=== PATIENT | male | born 1945 | race Caucasian/White ===

== ENCOUNTER 2016-08-16 07:34 | Observation (INO) | payer BC ==
[~2016-08-16] VITALS: Ht 177.8 cm; Wt 101.0 kg
[2016-08-16 07:39] VITALS: BP 177/79; PULSE 65; RESP 20; TEMP 97.6; O2SAT 94
--- NOTE | 2016-08-16 07:55 | PD ---
HPI Chief Complaint: left arm paresthesia Time Seen by Provider: 07:49 Travel History International Travel<30 days: No Contact w/Intl Traveler<30days: No Traveled to known affect area: No History of Present Illness HPI 71-year-old male with history of hypertension which has been poorly controlled recently, peripheral vascular disease, presents to the ER today because he states he has had several days' history of elevated blood pressures, left arm tingling and tingling in the jaw, and chest tightness. He states his blood pressure has been fairly elevated and he has been taking nitroglycerin and was recently given amlodipine after being seen in the ER and [place] several days ago. He states that his blood pressure came down but he states that the symptoms have not gone away and are still intermittent in nature. He denies any shortness of breath, nausea, difficulty walking, difficulty talking, weakness, numbness, or any other symptoms. 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 He states that he had a cardiac catheterization in 2014 which did not show significant coronary artery disease. Modifying Factors: None Associated Signs & Symptoms: Chest discomfort, left arm tingling and jaw tingling Risk Factors: None PFSH Social History Tobacco Use: No Allergies-Medications (Allergen,Severity, Reaction): Coded Allergies: No Known Allergies (Unverified , 08/16/16) Reported Meds & Prescriptions Reported Meds & Active Scripts Active Reported Aspirin 325 Mg Tab 325 Mg PO DAILY Multivitamin Men (Multiple Vitamins W/ Minerals) 1 Tab Tab 1 Tab PO DAILY Astaxanthin 4 Mg Cap 4 Mg PO DAILY Alpha Lipoic Acid (Alpha-Lipoic Acid (Thioctic AC) 200 Mg Tab Vitamin D3 (Cholecalciferol) 2,000 Unit Tab 2,000 Units PO DAILY Super B Complex Maxi (B-Complex W/ Folic Acid) 1 Tab 1 Tab PO DAILY Cinnamon Plus Chromium (Chromium-Cinnamon) 50-500 Mcg-Mg Cap Cinnamon Plus Chromium (Chromium-Cinnamon) 200-1,000 Mcg-Mg Cap Niacin (Niacinamide) 500 Mg Tab Krill Oil 500 mg (Krill Oil) 1 Cap Cap Coq-10 (Coenzyme Q10 (Ubidecarenone)) 150 Mg Cap 220 Levothyroxine (Levothyroxine Sodium) 50 Mcg Tab 50 Mcg PO DAILY Isosorbide Mononitrate ER (Isosorbide Mononitrate) 30 Mg Eddie 30 Mg PO DAILY Irbesartan 300 Mg Tab 300 Mg PO DAILY Metoprolol Succinate ER 24 HR (Metoprolol Succinate) 50 Mg Tab 50 Mg PO DAILY Amlodipine (Amlodipine Besylate) 5 Mg Tab 5 Mg PO DAILY Review of Systems Except as stated in HPI: all other systems reviewed are Neg Physical Exam Narrative GENERAL: Well-nourished, well-developed elderly white male patient in no acute distress. SKIN: Warm and dry. HEAD: Normocephalic. EYES: No scleral icterus. No injection or drainage. NECK: Supple, trachea midline. CARDIOVASCULAR: Regular rate and rhythm without murmurs, gallops, or rubs. Pulses are present and equal bilaterally. RESPIRATORY: Breath sounds equal bilaterally. No accessory muscle use. GASTROINTESTINAL: Abdomen soft, non-tender, nondistended. MUSCULOSKELETAL: No cyanosis, or edema. BACK: Nontender without obvious deformity. No CVA tenderness. NEUROLOGICAL: Awake and alert. Cranial nerves II through XII intact. Motor and sensory grossly within normal limits. Five out of 5 muscle strength in all muscle groups. Normal speech. No pronator drift. Data Data Last Documented VS Vital Signs Date Time Temp Pulse Resp B/P Pulse Ox O2 Delivery O2 Flow Rate FiO2 08/16/16 08:20 62 19 08/16/16 08:15 115/58 92 Room Air 08/16/16 07:39 97.6 Orders Electrocardiogram (08/16/16 07:49) Ckmb (Isoenzyme) Profile (08/16/16 07:49) Complete Blood Count With Diff (08/16/16 07:49) Comprehensive Metabolic Panel (08/16/16 07:49) Magnesium (Mg) (08/16/16 07:49) Prothrombin Time / Inr (Pt) (08/16/16 07:49) Act Partial Throm Time (Ptt) (08/16/16 07:49) Troponin I (08/16/16 07:49) Chest, Single Ap (08/16/16 07:49) Ecg Monitoring (08/16/16 07:49) Bilateral Bp Monitoring (08/16/16 07:49) Iv Access Insert/Monitor (08/16/16 07:49) Oximetry (08/16/16 07:49) Oxygen Administration (08/16/16 07:49) Ct Brain W/O Iv Contrast(Rout) (08/16/16 07:49) CKMB (08/16/16 08:10) CKMB% (08/16/16 08:10) Labs Laboratory Tests Test 08/16/16 08:10 White Blood Count 8.5 TH/MM3 Red Blood Count 4.92 MIL/MM3 Hemoglobin 15.5 GM/DL Hematocrit 44.5 % Mean Corpuscular Volume 90.4 FL Mean Corpuscular Hemoglobin 31.5 PG Mean Corpuscular Hemoglobin 34.8 % Concent Red Cell Distribution Width 13.4 % Platelet Count 269 TH/MM3 Mean Platelet Volume 8.0 FL Neutrophils (%) (Auto) 67.8 % Lymphocytes (%) (Auto) 22.7 % Monocytes (%) (Auto) 7.7 % Eosinophils (%) (Auto) 1.0 % Basophils (%) (Auto) 0.8 % Neutrophils # (Auto) 5.8 TH/MM3 Lymphocytes # (Auto) 1.9 TH/MM3 Monocytes # (Auto) 0.7 TH/MM3 Eosinophils # (Auto) 0.1 TH/MM3 Basophils # (Auto) 0.1 TH/MM3 CBC Comment DIFF FINAL Differential Comment Prothrombin Time 10.5 SEC Prothromb Time International 1.0 RATIO Ratio Activated Partial 25.7 SEC Thromboplast Time Sodium Level 140 MEQ/L Potassium Level 4.5 MEQ/L Chloride Level 105 MEQ/L Carbon Dioxide Level 28.6 MEQ/L Anion Gap 6 MEQ/L Blood Urea Nitrogen 20 MG/DL Creatinine 0.92 MG/DL Estimat Glomerular Filtration 81 ML/MIN Rate Random Glucose 119 MG/DL Calcium Level 9.9 MG/DL Magnesium Level 1.9 MG/DL Total Bilirubin 0.5 MG/DL Aspartate Amino Transf 25 U/L (AST/SGOT) Alanine Aminotransferase 40 U/L (ALT/SGPT) Alkaline Phosphatase 51 U/L Total Creatine Kinase 116 U/L Creatine Kinase MB 2.2 NG/ML Troponin I LESS THAN 0.02 NG/ML Total Protein 7.6 GM/DL Albumin 4.0 GM/DL MDM Medical Decision Making Medical Screen Exam Complete: Yes Emergency Medical Condition: Yes Medical Record Reviewed: Yes Interpretation(s) EKG shows NSR, no ST elevation or depression, and no arrhythmias. No significant T-wave inversions. Laboratory Tests Test 08/16/16 08:10 Blood Urea Nitrogen 20 MG/DL (7-18) Estimat Glomerular Filtration 81 ML/MIN (>89) Rate Random Glucose 119 MG/DL (74-106) Troponin I LESS THAN 0.02 NG/ML (0.02-0.05) Last [address] 08/16/16 0771 Signed Impressions: Service Date/Time: Tuesday, August 16, 2016 08:26 - CONCLUSION: Normal examination for a patient of this age. Roderick Osorio MD Chest X-Ray 08/16/1651 Signed Impressions: Service Date/Time: Tuesday, August 16, 2016 07:46 - CONCLUSION: 1. Cardiomegaly. No acute pulmonary disease. Sarath Ray MD Differential Diagnosis Chest discomfort, left arm and jaw paresthesiasACS versus cervical radiculopathy versus anxiety versus hypertensive urgency Narrative Course Patient has no focal neurological findings. EKG did not show dysrhythmias. Patient has taken his own aspirin at 3 AM this morning pulled dose. CT was negative for any signs of acute intracranial processes. Cardiac enzymes negative. At this point, my plan would be to admit him for further evaluation of his neurological symptoms. Case was discussed with family practice resident service for admission for further neurological and cardiac evaluation. Diagnosis Primary Impression: PRSNL HX OF TIA (TIA), AND CEREB INFRC W/O RESID DEFICITS Admitting Information Admitting Physician Requests: Admit Elvis Goodman MD Aug 16, 2016 07:55
[2016-08-16 08:15] VITALS: BP 115/58; PULSE 65; RESP 13; O2SAT 92
--- NOTE | 2016-08-16 08:20 | RADRPT ---
EXAM DATE/TIME: 08/16/2016 07:46 [facility] COMPARISON: No previous studies available for comparison. INDICATIONS : Chest pains. MEDICAL HISTORY : None. SURGICAL HISTORY : Stents in both legs. ENCOUNTER: Subsequent ACUITY: 3 weeks PAIN SCORE: 3/10 LOCATION: Right chest FINDINGS: The cardiac silhouette is enlarged in transverse diameter. The lungs are free of acute parenchymal op acity. No effusions are identified. There is prominence of the aortic knob is with calcification kate acteristic of atherosclerotic vascular disease. CONCLUSION: 1. Cardiomegaly. No acute pulmonary disease. Sarath Ray MD on August 16, 2016 at 8:19 Board Certified Radiologist. This report was verified electronically.
[2016-08-16 08:27] LABS: AUTOMATED NEUTROPHIL # 5.8 TH/MM3 (1.8-7.7); BASOPHIL # 0.1 TH/MM3 (0-0.2); BASOPHIL % 0.8 % (0.0-2.0); EOSINOPHIL # 0.1 TH/MM3 (0-0.4); HEMATOCRIT 44.5 % (39.0-51.0); HEMO FLAGS DIFF FINAL; LYMPH % 22.7 % (9.0-44.0); LYMPHOCYTE # 1.9 TH/MM3 (1.0-4.8); MEAN CELL VOLUME 90.4 FL (80.0-100.0); MEAN CORPUSCULAR HEMOGLOBIN 31.5 PG (27.0-34.0); MEAN CORPUSCULAR HGB CONC 34.8 % (32.0-36.0); MONO % 7.7 % (0.0-8.0); NEUT % 67.8 % (16.0-70.0); PLATELET COUNT 269 TH/MM3 (150-450); RED BLOOD COUNT 4.92 MIL/MM3 (4.50-5.90); RED CELL DISTRIBUTION WIDTH 13.4 % (11.6-17.2); WHITE BLOOD COUNT 8.5 TH/MM3 (4.0-11.0)
[2016-08-16 08:36] LABS: APTT (PATIENT) 25.7 SEC (24.3-30.1); PROTHROMBIN TIME - PATIENT 10.5 SEC (9.8-11.6)
[2016-08-16] MEDS ORDERED: SUPETAB20 PO (08:40)
[2016-08-16] MEDS ORDERED: ISOS30TA3 PO (08:40)
[2016-08-16] MEDS ORDERED: VITA200012 PO (08:40)
[2016-08-16] MEDS ORDERED: ALPHTAB (08:40)
[2016-08-16] MEDS ORDERED: NIAC500T18 (08:40)
[2016-08-16] MEDS ORDERED: CHRO1CAP2 (08:40)
[2016-08-16] MEDS ORDERED: MULT1TAB85 PO (08:40)
[2016-08-16] MEDS ORDERED: CHRO1CAP4 (08:40)
[2016-08-16] MEDS ORDERED: METO50TA11 PO (08:40)
[2016-08-16] MEDS ORDERED: LEVO50TA4 PO (08:40)
[2016-08-16] MEDS ORDERED: KRIL1CAP11 (08:40)
[2016-08-16] MEDS ORDERED: IRBE300T11 PO (08:40)
[2016-08-16] MEDS ORDERED: ASPI325T PO (08:40)
[2016-08-16] MEDS ORDERED: ASTA1CAP2 PO (08:40)
[2016-08-16] MEDS ORDERED: AMLO5TAB2 PO (08:40)
[2016-08-16] MEDS ORDERED: COQ-150C (08:40)
[2016-08-16 08:46] LABS: ALT (GPT) 40 U/L (12-78); ANION GAP 6 MEQ/L (5-15); AST (GOT) 25 U/L (15-37); BICARBONATE 28.6 MEQ/L (21.0-32.0); BLOOD UREA NITROGEN 20 MG/DL (7-18); CHLORIDE 105 MEQ/L (98-107); GLOMERULAR FILTRATION RATE 81 ML/MIN (>89); MAGNESIUM 1.9 MG/DL (1.5-2.5); POTASSIUM 4.5 MEQ/L (3.5-5.1); SODIUM (NA) 140 MEQ/L (136-145)
[2016-08-16 08:51] LABS: ALKALINE PHOSPHATASE 51 U/L (45-117); CREATINE KINASE 116 U/L (39-308); TOTAL BILIRUBIN ADULT 0.5 MG/DL (0.2-1.0)
[2016-08-16 09:04] LABS: CKMB 2.2 NG/ML (0.5-3.6)
--- NOTE | 2016-08-16 09:16 | RADRPT ---
EXAM DATE/TIME: 08/16/2016 08:26 [facility] COMPARISON: No previous studies available for comparison. INDICATIONS : Increased blood pressure with left arm tingling and chest tightness. RADIATION DOSE: 51.30 CTDIvol (mGy) MEDICAL HISTORY : Hypertension. Cardiovascular disease SURGICAL HISTORY : None. ENCOUNTER: Initial ACUITY: 1 day PAIN SCALE: 0/10 LOCATION: cranial TECHNIQUE: Multiple contiguous axial images were obtained of the head. Using automated exposure control and adj ustment of the mA and/or kV according to patient size, radiation dose was kept as low as reasonably a chievable to obtain optimal diagnostic quality images. FINDINGS: CEREBRUM: The ventricles are normal for age. Mild bilateral cortical atrophy. No evidence of midline shift, ma ss lesion, hemorrhage or acute infarction. No extra-axial fluid collections are seen. POSTERIOR FOSSA: The cerebellum and brainstem are intact. The 4th ventricle is midline. The cerebellopontine angle i s unremarkable. EXTRACRANIAL: The visualized portion of the orbits is intact. SKULL: The calvaria is intact. No evidence of skull fracture. CONCLUSION: Normal examination for a patient of this age. Roderick Osorio MD on August 16, 2016 at 9:14 Board Certified Radiologist. This report was verified electronically.
--- NOTE | 2016-08-16 09:41 | HHI.HP ---
[facility] Service Family Medicine Primary Care Physician Non-Staff Admission Diagnosis Diagnoses: International Travel<30 Days: No Contact w/Intl Traveler<30days: No Known Affected Area: No History of Present Illness 71y male with HTN, Hx [place], DM2 with diabetic neuropathy, PVD, and tobacco abuse presents 08/16/15 for tingling/numbness. Starting three weeks ago, had numbness and tingling in L face/lips/jaw, arm, and leg. Neuropathy lasts for minutes to an hour, or longer. Worsened by staying still, improved by movement. No inciting incident- denies association with food, exercise, or stress. Also noticed the blood pressure elevated. Has episodes where he feels burning in feet and ears with cold sweats and then checks b/p. B/P decreases after takes quick acting nitro. Of note, noticed improvement in numbness once his blood pressure is controlled. Episodes tend occur in evenings. Compliant with aspirin, irbesartan, isosorbide mononitrate, and metoprolol. Stresses no worse than baseline. Denies PEREA, blurry vision, ataxia, falls, chest pain, palpitations, SOB, or weakness. Worked up for HTN/numbness by ED in [facility] with ACS workup negative. 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 Review of Systems Constitutional: COMPLAINS OF: Diaphoretic episodes, DENIES: Fever, Chills, Dizziness Eyes: DENIES: Blurred vision, Double Vision Ears, nose, mouth, throat: DENIES: Throat pain, Running Nose Respiratory: COMPLAINS OF: Snoring, DENIES: Cough, Wheezing, Hemoptysis, Sputum production, Shortness of breath Cardiovascular: DENIES: Chest pain, Palpitations, Syncope, Lower Extremity Edema, Claudication Gastrointestinal: DENIES: Abdominal pain, Nausea, Vomiting Musculoskeletal: COMPLAINS OF: Back pain, DENIES: Neck pain Integumentary: COMPLAINS OF: Abnormal pigmentation (shins, some hyperpigmentation), DENIES: Pruritus, Rash Neurologic: COMPLAINS OF: Paresthesias, Poor Balance (baseline), DENIES: Headache, Localized weakness, Seizures, Speech Problems, Tremor Psychiatric: DENIES: Anxiety, Confusion, Mood changes Past Family Social History Past Medical History DM2 HTN HLD Diabetic neuropathy Hx [place] (2001) Tobacco abuse Lumbar back pain PVD Hypothyroidism Past Surgical History LE bypass x2 Cardiac cath 2015- wnl Appendectomy 2006 Reported Medications Astaxanthin 4 Mg Cap 4 Mg PO DAILY (anti-oxidant) Multivitamin Men (Multiple Vitamins W/ Minerals) 1 Tab Tab 1 Tab PO DAILY Alpha Lipoic Acid (Alpha-Lipoic Acid (Thioctic AC) 200 Mg Tab (tx diabetic neuropathy) Vitamin D3 (Cholecalciferol) 2,000 Unit Tab 2,000 Units PO DAILY Super B Complex Maxi (B-Complex W/ Folic Acid) 1 Tab 1 Tab PO DAILY Cinnamon Plus Chromium (Chromium-Cinnamon) 200-1,000 Mcg-Mg Cap Niacin (Niacinamide) 500 Mg Tab Krill Oil 500 mg (Krill Oil) 1 Cap Cap Coq-10 (Coenzyme Q10 (Ubidecarenone)) 150 Mg Cap 220 Levothyroxine (Levothyroxine Sodium) 50 Mcg Tab 50 Mcg PO DAILY Aspirin 325 Mg Tab 325 Mg PO DAILY Isosorbide Mononitrate ER (Isosorbide Mononitrate) 30 Mg Eddie 30 Mg PO DAILY ( prophylactic) Irbesartan 300 Mg Tab 300 Mg PO DAILY Metoprolol Succinate ER 24 HR (Metoprolol Succinate) 50 Mg Tab 50 Mg PO DAILY Amlodipine (Amlodipine Besylate) 5 Mg Tab 5 Mg PO DAILY Allergies: Coded Allergies: No Known Allergies (Unverified , 08/16/16) Family History Three children, healthy. 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 Children- 3. Not in the area. Ciro is eldest child. Physical Exam Vital Signs Vital Signs Date Time Temp Pulse Resp B/P Pulse Ox O2 Delivery O2 Flow Rate FiO2 08/16/16 08:20 62 19 08/16/16 08:15 65 13 115/58 92 Room Air 08/16/16 07:39 97.6 65 20 177/79 94 Room Air Physical Exam CONST: Adult male, NAD DERM: Warm and dry HEENT: PERRL. EOMI. No nystagmus. MMM. Wears glasses CV: Bradycardic (50-60). Faint heart sounds. No murmurs. Radial pulse 2+ RESP: Lungs CTAB. Breathing well on RA GI: NTND. +BS MSK: Muscle tone appropriate, symmetrical. No tenderness to palpation of vertebral or paravertebral structures. NEURO: Minor loss of sensation in L V2 distribution of face. ROM neck full and without inciting neuropathy. Negative Lhermitte. Otherwise comprehensive neuro exam wnl. AAOx3. No facial droop. Tongue midline. CNII-XII intact. 5/5 strength deltoids, biceps/triceps, hip flexors, dorsiflexion/ plantarflexion at ankle. Sensation equal and symmetrical in upper and lower extremities. No Babinski sign. PSYCH: Gruff demenor. Good insight. Excellent historian. Laboratory Laboratory Tests Test 08/16/16 08:10 White Blood Count 8.5 Red Blood Count 4.92 Hemoglobin 15.5 Hematocrit 44.5 Mean Corpuscular Volume 90.4 Mean Corpuscular Hemoglobin 31.5 Mean Corpuscular Hemoglobin 34.8 Concent Red Cell Distribution Width 13.4 Platelet Count 269 Mean Platelet Volume 8.0 Neutrophils (%) (Auto) 67.8 Lymphocytes (%) (Auto) 22.7 Monocytes (%) (Auto) 7.7 Eosinophils (%) (Auto) 1.0 Basophils (%) (Auto) 0.8 Neutrophils # (Auto) 5.8 Lymphocytes # (Auto) 1.9 Monocytes # (Auto) 0.7 Eosinophils # (Auto) 0.1 Basophils # (Auto) 0.1 CBC Comment DIFF FINAL Differential Comment Prothrombin Time 10.5 Prothromb Time International 1.0 Ratio Activated Partial 25.7 Thromboplast Time Sodium Level 140 Potassium Level 4.5 Chloride Level 105 Carbon Dioxide Level 28.6 Anion Gap 6 Blood Urea Nitrogen 20 Creatinine 0.92 Estimat Glomerular Filtration 81 Rate Random Glucose 119 Calcium Level 9.9 Magnesium Level 1.9 Total Bilirubin 0.5 Aspartate Amino Transf 25 (AST/SGOT) Alanine Aminotransferase 40 (ALT/SGPT) Alkaline Phosphatase 51 Total Creatine Kinase 116 Creatine Kinase MB 2.2 Troponin I LESS THAN 0.02 Total Protein 7.6 Albumin 4.0 Result Diagram: 08/16/1610 08/16/16 0810 Imaging Last Impressions Head CT 08/16/16 0749 Signed Impressions: Service Date/Time: Tuesday, August 16, 2016 08:26 - CONCLUSION: Normal examination for a patient of this age. Roderick Osorio MD Chest X-Ray 08/16/16 0749 Signed Impressions: Service Date/Time: Tuesday, August 16, 2016 07:46 - CONCLUSION: 1. Cardiomegaly. No acute pulmonary disease. Sarath Ray MD Assessment and Plan Assessment and Plan 71y male admitted with poorly controlled HTN and L-sided neuropathy for ACS rule out. Code Status Full Discussed Condition With DW: Dr. Silva, Dr. Garnica Problem List: (1) Poorly-controlled hypertension Status: Acute Plan: Reports compliance with meds. Possibly many homeopathic remedies interfering with medications? ACS rule out. Plan -Admit to observation under Dr. Silva -Trend Trops, CK, EKG Trop 1: Less than 0.02. Pending #2 and #3 at 2pm and 8pm CK 1: wnl. Pending #2 and #3 EKG: Sinus bradycardia (57). Left [place] Deviation. QRS prolonged (0.14) No ST elevations or depressions appreciated. No T wave changes. Compare to EKG 07/27/16- pt brought, in room -CBC, CMP, free t4 ordered CBC, CMP wnl -free T4 pending -US Carotid Arteries pending -ECHO pending (2) Numbness and tingling Status: Acute Plan: Appears related to hypertensive episodes, likely arterial in nature. Odd that only L-sided, however neuro exam unremarkable. Head CT, CXR, wnl -continue to monitor, consider additional imaging or labs as indicated (3) CAD (coronary artery disease) Status: Chronic Plan: Hx probable [place] in 2001. Denies stents. Cardiac cath in 2014 wnl. Did not tolerate plavix secondary to nosebleeds. -Continue home aspirin 325mg (4) Hypothyroidism Status: Chronic Plan: -continue home levothyroxine 50mcg daily -free T4 pending (5) PVD (peripheral vascular disease) Status: Chronic Plan: s/p LE bypass each leg -smoking cessation counseling provided (6) HTN (hypertension) Status: Chronic Plan: -continue home metoprolol 50mg daily -continue home amlodipine 5mg daily -continue home irbesartan -clonidine PRN SBP 180+ (7) HLD (hyperlipidemia) Status: Chronic Plan: Previously took Aleve and Repatha (evolocumab) INJ every other week for cholesterol, both of which were stopped in the last month as may increase B/P. -continue home niacin (8) DM2 (diabetes mellitus, type 2) Status: Chronic Plan: DM2 with neuropathy. Well controlled, A1C 5.1%. Diabetic neuropathy (no feeling in L great toe). Takes metformin 1000mg BID and natural remedies- alpha lipoic acid, astaxanthin, cinnamon/chromium, Coq-10, multivit, superB w folic acid. - hold home metformin and herbal remedies. Last A1C 5.1%. - LSSI and Accue-checks (9) Diabetic neuropathy Status: Chronic Plan: -hold home herbal remedies (10) Tobacco dependence Status: Chronic Plan: 1 PPD *38y -smoking cessation counseling provided -nicotine patch contraindicated until ACS rule out neg (11) FEN and Chronic Conditions Status: Chronic Plan: Fluids: Per PO Electrolytes: monitor and replete, wnl on admit Nutrition: Heart Healthy Diet DVT ppx: SCD + Lovenox 40mg SQ daily GI ppx: not indicated Physician Certification 2 Midnight Certification Type: Admission for Inpatient Services Order for Inpatient Services The services are ordered in accordance with Medicare regulations or non- Medicare payer requirements, as applicable. In the case of services not specified as inpatient-only, they are appropriately provided as inpatient services in accordance with the 2-midnight benchmark. Estimated LOS (days): 2 days is the estimated time the patient will need to remain in the hospital, assuming treatment plan goals are met and no additional complications. Post-Hospital Plan: Home Problem Qualifiers (1) Diabetic neuropathy: Qualified Code: E11.42 - Diabetic polyneuropathy associated with type 2 diabetes mellitus Any Abraham MD R1 Aug 16, 2016 09:41 Estimated LOS (days): 2 days is the estimated time the patient will need to remain in the hospital, assuming treatment plan goals are met and no additional complications. Post-Hospital Plan: Home Problem Qualifiers (1) Diabetic neuropathy: Qualified Code: E11.42 - Diabetic polyneuropathy associated with type 2 diabetes mellitus Any Abraham MD R1 Aug 16, 2016 09:41
[2016-08-16] MEDS ORDERED: METF1000 PO (10:19)
[2016-08-16] MEDS ORDERED: amLODIPine BESYLATE 5 MG TAB PO SCH (11:00)
[2016-08-16] MEDS ORDERED: NALOXONE HCL 0.4 MG/ML AMP IV PRN (11:00)
[2016-08-16] MEDS ORDERED: SODIUM CHLORIDE 0.9% FLUSH 5 ML FLUSH FLUSH PRN (11:00)
--- NOTE | 2016-08-16 12:07 | RADRPT ---
EXAM DATE/TIME: 08/16/2016 11:23 [facility] COMPARISON: No previous studies available for comparison. INDICATIONS : Paresthesia. MEDICAL HISTORY : Hypercholesterolemia. Diabetes. SURGICAL HISTORY : Cardiac catheterization. Stents in legs. ENCOUNTER: Initial ACUITY: 2 weeks PAIN SCORE: 0/10 LOCATION: Bilateral neck PEAK SYSTOLIC VELOCITIES (cm/sec): ICA/CCA RATIO: Right: 1.0 Left: 1.0 ICA: Right: 72 Left: 65 CCA: Right: 70 Left: 66 ECA: Right: 78 Left: 78 VERTEBRAL: Right: 43 antegrade Left: 32 antegrade Elevated flow velocities and ICA/CCA ratios have been found to correlate with increased degrees of vessel stenosis, calculated as percentage of diameter relative to a normal segment of distal ICA/CCA FINDINGS: Scattered areas of atherosclerotic calcified plaque bilaterally within the carotid mindy nandini, right greater than left. RIGHT CAROTID: No significant stenosis is visualized. The waveforms are within normal limits. LEFT CAROTID: No significant stenosis is visualized. The waveforms are within normal limits. VERTEBRAL ARTERIES: Antegrade flow is seen in both vertebral arteries. MISCELLANEOUS: None. CONCLUSION: No evidence of significant stenosis. Kasey Mckenzie MD on August 16, 2016 at 12:04 Board Certified Radiologist. This report was verified electronically.
[2016-08-16] MEDS ORDERED: NITROGLYCERIN 2% OINT 1 GM PACKET TOP PRN (12:30)
[2016-08-16] MEDS ORDERED: ACETAMINOPHEN 325 MG TAB PO PRN (12:30)
[2016-08-16] MEDS ORDERED: SODIUM CHLORIDE 0.9% FLUSH 5 ML FLUSH IVF PRN (12:30)
[2016-08-16] MEDS ORDERED: MORPHINE SULFATE 4 MG/ML INJ IV PRN (12:30)
[2016-08-16] MEDS ORDERED: ONDANSETRON ODT 4 MG TAB PO PRN (12:45)
[2016-08-16] MEDS ORDERED: DEXTROSE 50% IN WATER 50 ML VIAL(D50) IV PUSH PRN (12:45)
[2016-08-16] MEDS ORDERED: SODIUM CHLOR 0.9% 1000 ML INJ 1,000 ML IV SCH (12:45)
[2016-08-16] MEDS ORDERED: GLUCAGON 1 MG/ML VIAL OTHER PRN (12:45)
[2016-08-16] MEDS ORDERED: cloNIDine HCL 0.1 MG TAB PO PRN (13:00)
[2016-08-16 15:30] VITALS: BP 130/66; PULSE 50; PULSE 58; RESP 20; TEMP 98.4
[2016-08-16] MEDS ORDERED: ISOSORBIDE MONONITRATE 30 MG TAB PO SCH (16:00)
[2016-08-16] MEDS: amLODIPine BESYLATE 5 MG TAB PO SCH (16:00)
[2016-08-16] MEDS: INSULIN ASPART SUPPLEMENTAL SCALE SQ SCH ×2 (16:00→20:55)
[2016-08-16] MEDS ORDERED: ENOXAPARIN SODIUM 40 MG/0.4 ML SYRINGE SQ SCH (16:00)
[2016-08-16 16:24] LABS: CREATINE KINASE 125 U/L (39-308)
[2016-08-16 16:37] LABS: CKMB 2.1 NG/ML (0.5-3.6)
[2016-08-16] MEDS: LOSARTAN 50 MG TAB PO SCH (16:54)
--- NOTE | 2016-08-16 19:40 | EKG ---
Date Performed: 08/16/2016 Time Performed: 08:03:31 PTAGE: 71 years EKG: SINUS BRADYCARDIA MARKED LEFT AXIS DEVIATION INTRAVENTRICULAR CONDUCTION DELAY POSSIBLE OLD LATERAL MYOCARDIAL INFARCTION ABNORMAL ECG NO PREVIOUS TRACING DOCTOR: Gerda Malin Interpretating Date/Time 08/16/2016 19:38:46
[2016-08-16 20:42] VITALS: BP 121/61; PULSE 87; RESP 18; TEMP 98.4; O2SAT 97
[2016-08-16] MEDS ORDERED: DOCUSATE SODIUM 50 MG/SENNA 8.6 MG TAB PO SCH (21:00)
[2016-08-16] MEDS ORDERED: SODIUM CHLORIDE 0.9% FLUSH 5 ML FLUSH IVF SCH (21:00)
[2016-08-16] MEDS ORDERED: SODIUM CHLORIDE 0.9% FLUSH 5 ML FLUSH FLUSH SCH (21:00)
[2016-08-16] MEDS ORDERED: ATORVASTATIN 10 MG TAB PO SCH (21:00)
[2016-08-16 21:38] LABS: CREATINE KINASE 163 U/L (39-308)
[2016-08-16 21:50] LABS: CKMB 1.8 NG/ML (0.5-3.6)
[2016-08-16 21:59] VITALS: BP 142/77; PULSE 68; RESP 18; TEMP 98; O2SAT 98
[2016-08-16 22:00] VITALS: BP 155/87; PULSE 87; RESP 21; TEMP 98.9; O2SAT 98
[2016-08-17 01:24] VITALS: BP 155/77; PULSE 77; RESP 18; TEMP 98; O2SAT 97
[2016-08-17 05:28] VITALS: BP 111/55; PULSE 90; RESP 18; TEMP 98; O2SAT 90
[2016-08-17] MEDS ORDERED: LEVOTHYROXINE SODIUM 50 MCG TAB PO SCH (06:00)
[2016-08-17] MEDS ORDERED: NICOTINE 4 MG/GUM CHEW PRN (06:15)
[2016-08-17] MEDS: INSULIN ASPART SUPPLEMENTAL SCALE SQ SCH ×2 (06:44→11:00)
[2016-08-17] MEDS ORDERED: ISOSORBIDE MONONITRATE 30 MG TAB PO SCH ×2 (07:00→09:00)
[2016-08-17 07:42] LABS: HEMATOCRIT 44.5 % (39.0-51.0); MEAN CORPUSCULAR HGB CONC 33.7 % (32.0-36.0); PLATELET COUNT 263 TH/MM3 (150-450); RED BLOOD COUNT 4.84 MIL/MM3 (4.50-5.90); RED CELL DISTRIBUTION WIDTH 13.9 % (11.6-17.2); REVIEW FLAG FINAL; WHITE BLOOD COUNT 7.5 TH/MM3 (4.0-11.0)
[2016-08-17 08:00] VITALS: BP 103/63; PULSE 46; PULSE 62; RESP 18; TEMP 97.8; O2SAT 94
[2016-08-17 08:10] LABS: BICARBONATE 29.3 MEQ/L (21.0-32.0); POTASSIUM 4.5 MEQ/L (3.5-5.1)
--- NOTE | 2016-08-17 08:35 | HHI.DCPOC ---
Discharge Care Plan Diagnosis: (1) Poorly-controlled hypertension (2) Diabetic neuropathy Goals to Promote Your Health * To prevent worsening of your condition and complications * To maintain your health at the optimal level Directions to Meet Your Goals Take your medications as prescribed Follow your dietary instruction Follow activity as directed Keep your appointments as scheduled Take your immunizations and boosters as scheduled If your symptoms worsen call your PCP, if no PCP go to Urgent Care Center or Emergency Room Smoking is Dangerous to Your Health. Avoid second hand smoke Call the 24-hour hour crisis hotline for domestic abuse at Leatha Escobar MD R2 Aug 17, 2016 08:35
[2016-08-17] MEDS ORDERED: ASPIRIN 325 MG TAB PO SCH (09:00)
[2016-08-17] MEDS ORDERED: PANTOPRAZOLE SOD 40 MG DELAYED RELEASE TAB PO SCH (09:00)
[2016-08-17] MEDS ORDERED: NICOTINE 21 MG/24 HR PATCH TD SCH (09:00)
[2016-08-17] MEDS ORDERED: METOPROLOL SUCCINATE 50 MG EXTENDED RELEASE TAB PO SCH (09:00)
[2016-08-17] MEDS ORDERED: CHOLECALCIFEROL (VIT D3) 1000 UNIT TAB PO SCH (09:00)
--- NOTE | 2016-08-17 09:34 | HHI.FPPN ---
Subjective Remarks Patient seen and examined this morning. Reports some fiat numbness of left arm, but no numbness or tingling of face or LE. He states he did not sleep well because of interruptions. He denies CP or SOB. No other complaints this am. Takes multiple herbal supplements and has not had any changes to his herbal regemine or change in brands. (Krista Macias MD R3) Objective Vitals Vital Signs Date Time Temp Pulse Resp B/P Pulse Ox O2 Delivery O2 Flow Rate FiO2 08/17/16 05:28 98.0 90 18 111/55 90 08/17/16 01:24 98.0 77 18 155/77 97 08/16/16 22:00 98.9 87 21 155/87 98 08/16/16 21:59 98.0 68 18 142/77 98 08/16/16 20:42 98.4 87 18 121/61 97 08/16/16 15:30 50 08/16/16 15:30 98.4 58 20 130/66 I/O 08/16/16 08/16/16 08/16/16 08/17/16 08/17/16 08/17/16 07:00 15:00 23:00 07:00 15:00 23:00 Intake Total 240 ml Balance 240 ml Intake Oral 240 ml (Krista Macias MD R3) Result Diagram: 08/17/16 0610 08/17/16 0610 Imaging Last Impressions Head CT 08/16/16 0749 Signed Impressions: Service Date/Time: Tuesday, August 16, 2016 08:26 - CONCLUSION: Normal examination for a patient of this age. Roderick Osorio MD Chest X-Ray 08/16/16 0749 Signed Impressions: Service Date/Time: Tuesday, August 16, 2016 07:46 - CONCLUSION: 1. Cardiomegaly. No acute pulmonary disease. Sarath Ray MD Carotid Artery Ultrasound 08/16/16 0000 Signed Impressions: Service Date/Time: Tuesday, August 16, 2016 11:23 - CONCLUSION: No evidence of significant stenosis. Kasey Mckenzie MD Objective Remarks GENERAL: well appearing, nad SKIN: Warm and dry. HEAD: Atraumatic. Normocephalic. EYES: Pupils equal and round. No scleral icterus. No injection or drainage. ENT: No nasal bleeding or discharge. Mucous membranes pink and moist. NECK: Trachea midline. No JVD. CARDIOVASCULAR: Regular rate and rhythm. RESPIRATORY: No accessory muscle use. Clear to auscultation. Breath sounds equal bilaterally. GASTROINTESTINAL: Abdomen soft, non-tender, nondistended. Hepatic and splenic margins not palpable. MUSCULOSKELETAL: Extremities without clubbing, cyanosis, or edema. No obvious deformities. NEUROLOGICAL: Awake and alert. No obvious cranial nerve deficits. Motor grossly within normal limits. Five out of 5 muscle strength in the arms and legs. Normal speech. PSYCHIATRIC: Appropriate mood and affect; insight and judgment normal. (Krista Macias MD R3) A/P Assessment and Plan 71y male admitted with poorly controlled HTN and L-sided neuropathy for ACS rule out. Discharge Planning D/C this afternoon. Seen and discussed with Shawn Alcantara, Jarad, Logan (Krista Macias MD R3) Attending Attestation Patient seen and examined. Case reviewed and discussed with the resident team, Dr Macias, Dr Garnica, Dr Abraham and Dr Ford. Agree with plan of care as discussed with me and documented in the resident note. (Vincent Silva MD) Problem List: (1) Numbness and tingling Status: Acute Plan: Improved. Unclear etiology. Head CT, CXR, and carotid US are wnl. ACS and stroke ruled out. Patient does take niacin which SE including tingling. When patient at home, episodes seem to correlate with high BP. BP has been well controlled in hospital and patient has not been getting herbal supplements and sx have significantly improved. Lipid panel reviewed and wnl, encourage patient to not take the niacin, repeat lipid panel in several months and re-evaluate necessity. (2) CAD (coronary artery disease) Status: Chronic Plan: Hx probable SD in 2001. Denies stents. Cardiac cath in 2014 wnl. Did not tolerate plavix secondary to nosebleeds. -Continue home aspirin 325mg (3) Hypothyroidism Status: Chronic Plan: -continue home levothyroxine 50mcg daily (4) PVD (peripheral vascular disease) Status: Chronic Plan: s/p LE bypass each leg -smoking cessation counseling provided (5) HTN (hypertension) Status: Chronic Plan: -continue home metoprolol 50mg daily -continue home amlodipine 5mg daily -continue home irbesartan -clonidine PRN SBP 180+ (6) HLD (hyperlipidemia) Status: Chronic Plan: Lipid profile performed recently and reviewed, wnl. (LDL 18, TG 200) - hold niacin (7) DM2 (diabetes mellitus, type 2) Status: Chronic Plan: DM2 with neuropathy. Well controlled, A1C 5.1%. Diabetic neuropathy (no feeling in L great toe). Takes metformin 1000mg BID and natural remedies- alpha lipoic acid, astaxanthin, cinnamon/chromium, Coq-10, multivit, superB w folic acid. - hold home metformin and herbal remedies. Last A1C 5.1%. - LSSI and Accue-checks (8) Diabetic neuropathy Status: Chronic Plan: -hold home herbal remedies (9) Tobacco dependence Status: Chronic Plan: 1 PPD *40y -smoking cessation counseling provided -nicotine patch contraindicated until ACS rule out neg (10) FEN and Chronic Conditions Status: Chronic Plan: Fluids: Per PO Electrolytes: monitor and replete, wnl on admit Nutrition: Heart Healthy Diet DVT ppx: SCD + Lovenox 40mg SQ daily GI ppx: not indicated (Krista Macias MD R3) Problem Qualifiers (1) Diabetic neuropathy: Qualified Code: E11.42 - Diabetic polyneuropathy associated with type 2 diabetes mellitus Krista Macias MD R3 Aug 17, 2016 09:34 Vincent Silva MD Aug 18, 2016 14:31
[2016-08-17] MEDS: amLODIPine BESYLATE 5 MG TAB PO SCH (10:09)
[2016-08-17] MEDS: LOSARTAN 50 MG TAB PO SCH (10:14)
--- NOTE | 2016-08-17 21:06 | EKG ---
Date Performed: 08/16/2016 Time Performed: 20:53:07 PTAGE: 71 years EKG: Sinus rhythm INTRAVENTRICULAR CONDUCTION DELAY POSSIBLE LATERAL MYOCARDIAL INFARCTION ABNORMAL ECG PREVIOUS TRACING : 08/16/2016 18.50 DOCTOR: Chip Langford Interpretating Date/Time 08/17/2016 21:02:42
--- NOTE | 2016-08-17 21:09 | EKG ---
Date Performed: 08/16/2016 Time Performed: 18:50:08 PTAGE: 71 years EKG: SINUS BRADYCARDIA INTRAVENTRICULAR CONDUCTION DELAY POSSIBLE LATERAL MYOCARDIAL INFARCTION ABNORMAL ECG PREVIOUS TRACING : 08/16/2016 08.03 DOCTOR: Chip Langford Interpretating Date/Time 08/17/2016 21:04:33
== END 2016-08-17 13:25 | disposition home or self-care (01) ==
LOC: NEPC 07:34 → NEDA 09:44 → NEPGCP 14:56
PROVIDERS: ADMIT Family Medicine; ATTEND Family Medicine
DX: I10 Essential (primary) hypertension (principal); E11.42 Type 2 diabetes mellitus with diabetic polyneuropathy; R20.2 Paresthesia of skin; I25.10 Atherosclerotic heart disease of native coronary artery without angina pectoris; I25.2 Old myocardial infarction; I73.9 Peripheral vascular disease, unspecified; E78.5 Hyperlipidemia, unspecified; E03.9 Hypothyroidism, unspecified; R00.1 Bradycardia, unspecified; R61 Generalized hyperhidrosis; M54.5 Low back pain; F17.210 Nicotine dependence, cigarettes, uncomplicated
CPT/HCPCS: 70450; 71010; 80048; 80053; 82550; 82552; 83735; 83880; 84439; 84484; 85025; 85027; 85610; 85730; 93005; 93880; 99285; G0378; J1650